=== PATIENT | male | born 1940 | race Two or more races ===

== ENCOUNTER 2020-09-24 05:20 | Day surgery (SDC) | payer OTHER ==
[~2020-09-24] VITALS: Ht 167.6 cm; Wt 90.7 kg
[~2020-09-24 05:20] MED LIST: BACLOFEN20 MG PO; FORTAMET500 MG PO; LODINE PO; LOSARTAN-HCTZ1 EAC1 PO; SIMVAST PO; TOPROL XL25 M1 PO; ULTRAM50 MG PO
[2020-09-24] MEDS ORDERED: OXYC1TAB9 PO (13:52)
[2020-09-24] MEDS ORDERED: DUI500 PO (13:52)
== END 2020-09-24 17:25 | disposition home or self-care (01) ==
LOC: CIR.AMB 05:20 → EDSTATUS 09:00 → SURH 09:00 → CIR.AMB 09:00
PROVIDERS: ATTEND Orthopaedic Surgery Sports Medicine
DX: M65.862 Other synovitis and tenosynovitis, left lower leg (principal); M23.42 Loose body in knee, left knee

== ENCOUNTER 2021-10-19 07:57 | Outpatient (CLI) | payer OTHER ==
[~2021-10-19 07:57] MED LIST changes: +DUI500 PO; +OXYC1TAB9 PO
== END 2021-10-19 08:01 | disposition home or self-care (01) ==
LOC: RAD 07:57
PROVIDERS: ATTEND Student in an Organized Health Care Education/Training Program
DX: M51.36 Other intervertebral disc degeneration, lumbar region (principal); M54.16 Radiculopathy, lumbar region

== ENCOUNTER 2023-06-26 10:15 | Inpatient (IN) | payer OTHER ==
[~2023-06-26] VITALS: Ht 165.1 cm; Wt 108.9 kg
[2023-06-30 08:51] LABS: HEMOGLOBIN 13.6 g/dL (13-16.00); MEAN CELL VOLUME 90.6 fL (80.0-100.00); MEAN CORPUSCULAR HEMOGLOBIN 31.6 pg (27.00-32.0); MEAN CORPUSCULAR HGB CONC 34.9 g/dl (32.0-36.0); PLATELET COUNT 360 K/uL (150-450); RED CELL DISTRIBUTION WIDTH 13.3 % (11.5-14.5)
[2023-06-30 09:18] LABS: PH,URINE 5.5 (5.0-8.0); URINE APPEARANCE Clear; URINE BILIRRUBIN Negative (NEGATIVE); URINE BLOOD Negative; URINE COLOR Yellow; URINE GLUCOSE Negative (NEGATIVE); URINE LEUKOCYTE Negative; URINE NITRATE Negative; URINE PROTEIN Negative (NEGATIVE); URINE UROBILINOGEN 0.2 E.U./dl
[2023-06-30 09:22] LABS: INR 1.03; PARTIAL THROMBOPLASTIN TIME 29.2 SECONDS (22.0-34.0); PROTHROMBIN TIME 10.8 SECONDS (9.0-11.5)
[2023-06-30 09:23] LABS: URINE BACTERIA 40.2 uL (0.0-1933); URINE EPITHELIAL CELLS 2.7 uL (0.0-38.8)
[2023-06-30 09:32] LABS: ALBUMIN 3.9 gm/dL (3.4-5.0); BILIRUBIN TOTAL 0.45 mg/dL (0.3-1.2); CREATININE SERUM 0.87 mg/dL (0.70-1.30); GFR 84.01; POTASSIUM 4.91 mEq/L (3.5-5.1); TOTAL PROTEIN 7.9 gm/dL (6.4-8.2)
[2023-06-30 09:49] LABS: URINE RBC 1.4 uL (0.0-20.8)
[2023-07-07 01:46] LABS: HEMATOCRIT 34.6 % (39.0-48.0); MEAN CELL VOLUME 90.7 fL (80.0-100.00); MEAN CORPUSCULAR HEMOGLOBIN 31.4 pg (27.00-32.0); MEAN CORPUSCULAR HGB CONC 34.6 g/dl (32.0-36.0); PLATELET COUNT 239 K/uL (150-450); RED BLOOD COUNT 3.82 M/uL (4.00-6.00); RED CELL DISTRIBUTION WIDTH 13.8 % (11.5-14.5)
[2023-07-07] MEDS ORDERED: SIMVASTATIN20 MG (10:02)
[2023-07-07] MEDS ORDERED: ALPHAGAN P5 M2 (10:02)
[2023-07-07] MEDS ORDERED: PANTOPRAZOLE SO40 MG (10:02)
[2023-07-07] MEDS ORDERED: ETODOLAC500 MG (10:04)
[2023-07-08 05:01] LABS: MEAN CELL VOLUME 90.2 fL (80.0-100.00); MEAN CORPUSCULAR HGB CONC 34.8 g/dl (32.0-36.0); PLATELET COUNT 218 K/uL (150-450); RED BLOOD COUNT 3.55 M/uL (4.00-6.00); RED CELL DISTRIBUTION WIDTH 13.7 % (11.5-14.5)
[2023-07-08 05:03] LABS: HEMOGLOBIN 11.2 g/dL (13-16.00); MEAN CORPUSCULAR HEMOGLOBIN 31.5 pg (27.00-32.0)
[2023-07-08] MEDS ORDERED: INTEGRA PLUS C1 EACH PO (07:35)
[2023-07-08] MEDS ORDERED: XARELTO10 MG PO (07:35)
[2023-07-08] MEDS ORDERED: OXYC1TAB9 PO (07:35)
[2023-07-08] MEDS ORDERED: BACTRIM DS TAB1 EACH PO (07:35)
== END 2023-07-08 18:42 | DRG 470 ==
LOC: SURH 07-06 10:15 → O/R 07-06 10:32 → SURH 07-06 10:32
PROVIDERS: ADMIT Orthopaedic Surgery Sports Medicine; ATTEND Orthopaedic Surgery Sports Medicine
PROC: 3E0F7SF Introduction of Other Gas into Respiratory Tract, Via Natural or Artificial Opening (ICD-10-PCS; 2023-07-06)
PROC: 0SRC0J9 Replacement of Right Knee Joint with Synthetic Substitute, Cemented, Open Approach (ICD-10-PCS; principal; 2023-07-06 14:00)
DX: M17.11 Unilateral primary osteoarthritis, right knee (principal); I10 Essential (primary) hypertension; E11.9 Type 2 diabetes mellitus without complications; E78.5 Hyperlipidemia, unspecified; Z79.84 Long term (current) use of oral hypoglycemic drugs